=== PATIENT | female | born 2000 | race Caucasian/White ===

== ENCOUNTER 2024-06-17 16:56 | Outpatient (REF) | payer BC, SELFPAY ==
[2024-06-17 17:49] LABS: Iron* 100 ug/dL (37-170)
[2024-06-17 17:58] LABS: Percent Iron Saturation 32 % (20-50); Total Iron Binding Capacity 318 ug/dL (265-497)
[2024-06-17 18:07] LABS: Free T4 Free Thyroxine* 1.04 ng/dL (0.70-1.85)
[2024-06-17 18:09] LABS: Hemoglobin A1C* 4.9 % (0-5.6)
[2024-06-19 23:00] LABS: Folate, Serum 18.4 ng/mL (>=5.9)
[2024-06-20 02:19] LABS: Free T3 2.7 pg/mL (2.5-4.3)
== END 2024-06-17 16:57 | disposition home or self-care (01) ==
LOC: NPINS 16:56
PROVIDERS: PCP Family Medicine; Visit Provider Nurse Practitioner Psychiatric/Mental Health
DX: F31.81 Bipolar II disorder (principal)
CPT/HCPCS: 80053; 80061; 82306; 82607; 82728; 82746; 83036; 83540; 83550; 84439; 84443; 84481